=== PATIENT | female | born 1960 | race Caucasian/White ===

== ENCOUNTER 2018-08-26 14:31 | Outpatient (CLI) | payer OTHER ==
--- NOTE | 2018-08-26 19:50 | MMO ---
BILATERAL SCREENING MAMMOGRAMS 08/26/18 This study is interpreted with the assistance of computer aided detection. COMPARISON: 03/11/17, 06/23/14, and 09/06/12. FINDINGS: There is a heterogeneously dense parenchymal pattern which may lower the sensitivity of mammography. Benign appearing calcifications are seen in each breast. Stable focal asymmetry in the upper left alex ast is again noted and stable and slightly smaller in size dating back to study in 2010. No new domin ant mass or suspicious grouping of microcalcifications are seen in either breast. IMPRESSION: BIRADS 2: Benign Finding(s) Routine annual screening mammography (for women over age 40). POS: [facility]
== END 2018-08-26 14:32 | disposition home or self-care (01) ==
LOC: SCSMAMMO 14:31
PROVIDERS: ATTEND Obstetrics & Gynecology
DX: Z12.31 Encounter for screening mammogram for malignant neoplasm of breast (principal)
CPT/HCPCS: 77067